=== PATIENT | male | born 1995 | race Caucasian/White ===

== ENCOUNTER 2020-10-01 05:55 | Day surgery (SDC) | payer OTHER, SELFPAY ==
[~2020-10-01] VITALS: Ht 195.6 cm; Wt 111.1 kg
[2020-10-01] MEDS ORDERED: diphenhydrAMINE 50 MG/ML VIAL IVP PRN (07:10)
[2020-10-01] MEDS ORDERED: LACTATED RINGERS 1,000 ML IV SCH (07:10)
[2020-10-01] MEDS ORDERED: ONDANSETRON 4 MG/2 ML VIAL IVP PRN (07:10)
[2020-10-01] MEDS ORDERED: MEPERIDINE 25 MG/ML SYR IVP PRN (07:10)
[2020-10-01] MEDS ORDERED: fentaNYL citrate 0.05 MG/ML VIAL IVP PRN (07:10)
[2020-10-01 07:18] LABS: ANION GAP 13.3 (8-16); CARBON DIOXIDE 28.1 mmol/L (21-32); POTASSIUM 3.4 mmol/L (3.5-5.1); TOTAL BILIRUBIN 1.6 mg/dL (0.0-1.0)
[2020-10-01 07:36] LABS: ALBUMIN 4.6 g/dL (3.4-5.0)
== END 2020-10-01 09:52 | disposition home or self-care (01) ==
LOC: MDS 05:55 → MMU 06:02 → MDS 09:52
PROVIDERS: ATTEND Internal Medicine Gastroenterology
DX: R63.4 Abnormal weight loss (principal); K44.9 Diaphragmatic hernia without obstruction or gangrene; K21.00 Gastro-esophageal reflux disease with esophagitis, without bleeding; E66.8 Other obesity; F17.210 Nicotine dependence, cigarettes, uncomplicated; Z20.822 Contact with and (suspected) exposure to COVID-19; Z79.899 Other long term (current) drug therapy
CPT/HCPCS: 36415; 43235; 45378; 71045; 80053; U0003